=== PATIENT | male | born 1970 | race African-American/Black ===

== ENCOUNTER 2017-10-24 15:10 | Emergency (ER) | payer MEDICAID, OTHER ==
[~2017-10-24] VITALS: Ht 175.3 cm; Wt 80.0 kg
[2017-10-24 15:12] VITALS: BP 118/74
== END 2017-10-24 18:50 | disposition left against medical advice (07) ==
LOC: ER 15:45
DX: Z04.1 Encounter for examination and observation following transport accident (principal); F17.200 Nicotine dependence, unspecified, uncomplicated
CPT/HCPCS: 99283